=== PATIENT | female | born 1945 | race Caucasian/White ===

== ENCOUNTER → 2016-10-22 | Outpatient (CLI) | payer MEDICARE, BC ==
[~2016-10-22] MED LIST: ALEVE220 MG PO; ALLEGRA 180MG180 MG PO; ALLEGRA60 MG PO; ASPIR-LOW81 MG PO; CELEXA40 MG PO; COLACE 100100 MG/CAP PO; IRON325 M1 PO; LISINOPRIL; LORTABELIX; MUCINEX 60600 MG/TAB PO; NORCO 325 MG-51 TAB PO; PREDNISONE20 MG PO; PREVACID30 MG PO; PRILOSEC 20MG20 MG PO; PRINIVIL20 MG PO; QUESTRAN4 GM/9 GM PO; ULTRAM 50MG TAB50 MG PO; ZESTRIL 10MG10 MG PO; ZESTRIL 20MG TA20 MG PO; ZOCOR; ZOCOR5 MG PO
== END ==
LOC: MC.RAD 12:35
DX: R23.4 Changes in skin texture (principal)

== ENCOUNTER → 2017-09-03 | Outpatient (CLI) | payer MEDICARE, BC | LOC: COL.RAD 09-02 12:30 | DX: M17.12 Unilateral primary osteoarthritis, left knee (principal) ==

== ENCOUNTER 2018-03-04 20:20 | Emergency (ER) | payer MEDICARE, BC ==
[~2018-03-04] VITALS: Ht 157.5 cm; Wt 81.8 kg
[2018-03-04 20:21] VITALS: TEMP 98.2
[2018-03-04 21:09] LABS: BASO % 0.4 % (0.0-2.0); EOS # 0.2 (0.0-0.7); EOS % 2.5 % (0-4.0); GRAN # 4.9 (1.4-6.5); GRAN % 64.2 % (42.2-75.2); HEMATOCRIT 39.2 % (37.0-47.0); HEMOGLOBIN 12.7 g/dl (12.5-16.0); LYMPH # 1.8 (1.2-3.4); LYMPH % 23.6 % (20.0-51.0); MEAN CELL VOLUME 84 fl (80.0-100.0); MEAN CORPUSCULAR HEMOGLOBIN 27 pg (27.0-31.0); MEAN CORPUSCULAR HGB CONC 32 g/dl (33.0-37.0); MEAN PLATELET VOLUME 10.4 fl (7.4-10.4); MONO # 0.7 (0.1-0.6); PLATELET COUNT 390 K/mm3 (130-400); RED BLOOD COUNT 4.69 M/mm3 (4.10-5.30); REDCELL DISTRIBUTION WIDTH-CV 14.1 % (11.5-14.5)
[2018-03-04 21:23] LABS: ALBUMIN 4.2 gm/dL (3.5-5.0); BILIRUBIN,TOTAL 0.3 mg/dL (0.0-1.0); C-REACTIVE PROTEIN 0.6 mg/dL (0.0-0.9); CALCIUM 10.5 mg/dL (8.4-10.2); CREATININE, serum 0.94 mg/dL (0.52-1.25); POTASSIUM 3.7 mmol/L (3.4-5.0); TOTAL PROTEIN 7.6 gm/dL (6.4-8.2)
[2018-03-04] MEDS ORDERED: NORVASC2.5 MG PO (21:35)
[2018-03-04] MEDS ORDERED: PRILOSEC 20MG20 MG PO (21:35)
[2018-03-04 21:38] LABS: ERYTHROCYTE SEDIMENTATION RATE 10 mm/hr (0-30)
[2018-03-04 21:53] VITALS: BP 164/85; PULSE 54
== END 2018-03-04 22:28 | disposition home or self-care (01) ==
LOC: COL.ER 20:20
PROVIDERS: Emergency Medicine
DX: G43.909 Migraine, unspecified, not intractable, without status migrainosus (principal); I10 Essential (primary) hypertension
CPT/HCPCS: J1200; J2405; J3010; J7030

== ENCOUNTER → 2018-03-24 | Outpatient (CLI) | payer MEDICARE, BC ==
[~2018-03-24] MED LIST changes: +NORVASC2.5 MG PO
== END ==
LOC: MC.RAD 10:24
DX: Z12.31 Encounter for screening mammogram for malignant neoplasm of breast (principal)

== ENCOUNTER 2019-03-24 07:16 | Outpatient (CLI) | payer MEDICARE, BC ==
[~2019-03-24] VITALS: Ht 157.6 cm; Wt 83.5 kg
[2019-03-24] VITALS (7 sets, daily range): BP systolic 111–143; BP diastolic 65–79; PULSE 50–56; TEMP 97.6–97.8
[2019-03-24 07:51] LABS: HEMATOCRIT 39.4 % (37.0-47.0); HEMOGLOBIN 12.7 g/dl (12.5-16.0); MEAN CELL VOLUME 87 fl (80.0-100.0); MEAN CORPUSCULAR HEMOGLOBIN 28 pg (27.0-31.0); MEAN CORPUSCULAR HGB CONC 32 g/dl (33.0-37.0); MEAN PLATELET VOLUME 10.4 fl (7.4-10.4); PLATELET COUNT 408 K/mm3 (130-400); RED BLOOD COUNT 4.51 M/mm3 (4.10-5.30); REDCELL DISTRIBUTION WIDTH-CV 13.4 % (11.5-14.5)
[2019-03-24] MEDS ORDERED: NORVASC 5MG5 MG/TAB PO (07:53)
[2019-03-24] MEDS ORDERED: ZYRTEC 10MG10 MG PO (07:54)
[2019-03-24] MEDS ORDERED: CALCIUM 600 PLU1 TAB PO (07:55)
[2019-03-24] MEDS ORDERED: TYLENOL 8 HR PO (07:55)
[2019-03-24] MEDS ORDERED: NASACORT OTC NS (07:56)
[2019-03-24] MEDS ORDERED: MIRALAX PA17 GM/Dose PO (07:57)
[2019-03-24 07:58] LABS: PROTHROMBIN TIME 11.3 SECONDS (9.7-12.8)
[2019-03-24] MEDS ORDERED: SLOW FE142 MG PO (07:59)
[2019-03-24] MEDS ORDERED: TRIAMC 0.025 454 TOP (08:00)
[2019-03-24 08:01] LABS: CREATININE, serum 0.78 (0.52-1.25)
[2019-03-24] MEDS ORDERED: EPINASTINE OU (08:02)
--- NOTE | 2019-03-24 09:40 | NUR ---
LYNNETTE complete and pt vicky well per report from Hans Kaur RN. Pt resting well in room.
--- NOTE | 2019-03-24 11:00 | NUR ---
Pt has ambulated, voided and vicky PO intake s n/v.
--- NOTE | 2019-03-24 11:20 | NUR ---
PIV removed with catheter intact.
--- NOTE | 2019-03-24 11:30 | NUR ---
Pt discharged per w/c by nurse with friend.
== END 2019-03-24 11:34 | disposition home or self-care (01) ==
LOC: COL.RAD 07:16
PROVIDERS: Internal Medicine Cardiovascular Disease
DX: I10 Essential (primary) hypertension (principal); N18.3 Chronic kidney disease, stage 3 (moderate); E66.01 Morbid (severe) obesity due to excess calories; R93.1 Abnormal findings on diagnostic imaging of heart and coronary circulation
CPT/HCPCS: J2704; J7120

== ENCOUNTER → 2019-04-20 | Outpatient (CLI) | payer MEDICARE, BC ==
[~2019-04-20] MED LIST changes: +CALCIUM 600 PLU1 TAB PO; +EPINASTINE OU; +MIRALAX PA17 GM/Dose PO; +NASACORT OTC NS; +NORVASC 5MG5 MG/TAB PO; +SLOW FE142 MG PO; +TRIAMC 0.025 454 TOP; +TYLENOL 8 HR PO; +ZYRTEC 10MG10 MG PO
== END ==
LOC: MC.RAD 03-25 13:15
DX: Z12.31 Encounter for screening mammogram for malignant neoplasm of breast (principal)

== ENCOUNTER → 2019-10-30 | Outpatient (CLI) | payer MEDICARE, BC | LOC: COL.RAD 10:05 | DX: E83.52 Hypercalcemia (principal) | CPT/HCPCS: A9500 ==

== ENCOUNTER 2022-05-14 07:33 | Outpatient (CLI) | payer MEDICARE, BC ==
[~2022-05-14] VITALS: Ht 157.5 cm; Wt 78.3 kg
[2022-05-14 08:30] VITALS: BP 128/56; PULSE 55; TEMP 98.6
[2022-05-14 08:31] VITALS: BP 128/56; PULSE 55; TEMP 98.6
--- NOTE | 2022-05-14 09:17 | NUR ---
Pt's home med rec list was already "finalized" prior to her arrival into ambulatory for pre-op work up, and could not be updated in computer. This was communicated with Avila, OR nurse and a copy of pt's med list was placed on chart.
[2022-05-14 09:33] VITALS: BP 119/60; PULSE 51; TEMP 98.6
[2022-05-14 09:45] VITALS: BP 131/79; PULSE 58
[2022-05-14 09:57] LABS: BASO # 0.1 K/mm3 (0.0-0.2); BASO % 0.7 % (0.0-2.0); EOS # 0.2 K/mm3 (0.0-0.7); EOS % 3.3 % (0.0-4.0); GRAN # 5.3 K/mm3 (1.4-6.5); GRAN % 72.8 % (42.2-75.2); HEMATOCRIT 37.1 % (37.0-47.0); HEMOGLOBIN 11.9 g/dl (12.5-16.0); LYMPH # 1.1 K/mm3 (1.2-3.4); LYMPH % 15.2 % (20.0-51.0); MEAN CELL VOLUME 86 fl (80.0-100.0); MEAN CORPUSCULAR HEMOGLOBIN 28 pg (27-31); MEAN CORPUSCULAR HGB CONC 32 g/dl (33.0-37.0); MEAN PLATELET VOLUME 10.4 fl (7.4-10.4); MONO # 0.6 K/mm3 (0.1-0.6); MONO % 7.7 % (1.7-9.3); PLATELET COUNT 496 K/mm3 (130-400); RED BLOOD COUNT 4.31 M/mm3 (4.10-5.30); REDCELL DISTRIBUTION WIDTH-CV 14.5 % (11.5-14.5)
[2022-05-14 10:00] VITALS: BP 108/68; PULSE 60
--- NOTE | 2022-05-14 10:02 | NUR ---
Pt tolerating coffee and muffin without issue. She is alert, speaking with friend at bedside. Bandage remains clean, dry and intact.
[2022-05-14 10:10] VITALS: BP 128/75; PULSE 53
--- NOTE | 2022-05-14 10:15 | NUR ---
Pt has continued to tolerate PO without issue. DC paperwork and instructions reviewed with pt and friend. INT DC'd, site wrapped with coban. She is steady on feet around room. She is assisted out to friend's car by wheelchair with belongings.
== END 2022-05-14 10:15 | disposition home or self-care (01) ==
LOC: SDCO 07:33
PROVIDERS: Pathology Anatomic Pathology & Clinical Pathology
DX: D75.839 Thrombocytosis, unspecified (principal); D64.9 Anemia, unspecified; D47.4 Osteomyelofibrosis; Z87.891 Personal history of nicotine dependence; Z79.899 Other long term (current) drug therapy; K21.9 Gastro-esophageal reflux disease without esophagitis; I10 Essential (primary) hypertension
CPT/HCPCS: J2704; J7120

== ENCOUNTER → 2022-11-26 | Outpatient (CLI) | payer MEDICARE, BC, OTHER | LOC: MHCPAIN 10:17 | DX: M54.16 Radiculopathy, lumbar region (principal); M47.816 Spondylosis without myelopathy or radiculopathy, lumbar region; M79.18 Myalgia, other site | CPT/HCPCS: G0463 ==

== ENCOUNTER → 2022-11-29 | Outpatient (CLI) | payer MEDICARE, BC | LOC: MHCPAIN 09:00 | DX: M47.816 Spondylosis without myelopathy or radiculopathy, lumbar region (principal); M54.16 Radiculopathy, lumbar region; M79.18 Myalgia, other site; M54.6 Pain in thoracic spine | CPT/HCPCS: J1040; J1100; Q9967 ==

== ENCOUNTER → 2023-01-08 | Outpatient (CLI) | payer MEDICARE, BC | LOC: COL.RAD 15:09 | DX: M47.816 Spondylosis without myelopathy or radiculopathy, lumbar region (principal); M51.36 Other intervertebral disc degeneration, lumbar region; M43.16 Spondylolisthesis, lumbar region ==

== ENCOUNTER → 2023-01-08 | Outpatient (CLI) | payer MEDICARE, BC | LOC: MHCPAIN 14:06 | DX: M47.817 Spondylosis without myelopathy or radiculopathy, lumbosacral region (principal); M79.18 Myalgia, other site; M54.50 Low back pain, unspecified | CPT/HCPCS: G0463 ==

== ENCOUNTER → 2023-07-09 | Outpatient (CLI) | payer MEDICARE, BC | LOC: MHCPAIN 10:31 | DX: M47.896 Other spondylosis, lumbar region (principal); M79.81 Nontraumatic hematoma of soft tissue; M54.50 Low back pain, unspecified | CPT/HCPCS: G0463 ==

== ENCOUNTER → 2023-08-14 | Outpatient (CLI) | payer MEDICARE, BC | LOC: MHCPAIN 09:48 | DX: M79.18 Myalgia, other site (principal); M48.062 Spinal stenosis, lumbar region with neurogenic claudication; M47.896 Other spondylosis, lumbar region | CPT/HCPCS: G0463 ==

== ENCOUNTER → 2023-11-05 | Outpatient (CLI) | payer MEDICARE, BC | LOC: MHCPAIN 09:34 | DX: M79.18 Myalgia, other site (principal); M48.062 Spinal stenosis, lumbar region with neurogenic claudication | CPT/HCPCS: G0463 ==